=== PATIENT | female | born 1980 | race African-American/Black ===

== ENCOUNTER 2018-12-31 20:57 | Emergency (ER) | payer OTHER, SELFPAY | END 2018-12-31 21:14 | disposition home or self-care (01) | LOC: MADERS 20:57 | DX: R21 Rash and other nonspecific skin eruption (principal); F17.210 Nicotine dependence, cigarettes, uncomplicated | CPT/HCPCS: 99282 ==

== ENCOUNTER 2019-02-22 19:23 | Emergency (ER) | payer OTHER ==
--- NOTE | 2019-02-22 20:29 | RAD ---
EXAM: XR Clavicle Rt 2 V STANDARD PROVIDED CLINICAL HISTORY: Pain FINDINGS: There is no evidence for fracture or other acute osseous abnormality. Alignment appears anatomic. Rebeka nt spaces appear preserved. IMPRESSION: No evidence for an acute osseous abnormality. If there is persistent clinical concern, conservative m anagement and follow-up imaging advised.
[2019-02-22] MEDS ORDERED: Acetaminophen 500 MG TAB ONE (20:34)
[2019-02-22] MEDS ORDERED: Ibuprofen 800 MG TAB ONE (20:34)
== END 2019-02-22 20:50 | disposition home or self-care (01) ==
LOC: MADERS 19:23
DX: S60.222A Contusion of left hand, initial encounter (principal); M25.511 Pain in right shoulder; F17.210 Nicotine dependence, cigarettes, uncomplicated; V89.2XXA Person injured in unspecified motor-vehicle accident, traffic, initial encounter

== ENCOUNTER 2019-04-15 18:04 | Emergency (ER) | payer OTHER ==
[2019-04-15] MEDS ORDERED: Benzonatate 100 MG CAP ONE (18:31)
[2019-04-15] MEDS ORDERED: Dexamethasone 4 MG TAB ONE (18:31)
[2019-04-15] MEDS ORDERED: Lisinopril 10 MG TAB ONE (18:31)
[2019-04-15] MEDS ORDERED: Phenergan/Codeine 10-6.25mg/5ml UDCUP ONE (18:31)
== END 2019-04-15 18:30 | disposition home or self-care (01) ==
LOC: MADERS 18:04
DX: J20.8 Acute bronchitis due to other specified organisms (principal)
CPT/HCPCS: 99283; J8540

== ENCOUNTER 2021-05-26 11:15 | Emergency (ER) | payer OTHER | END 2021-05-26 11:45 | disposition home or self-care (01) | LOC: MADERS 11:15 | DX: S00.93XA Contusion of unspecified part of head, initial encounter (principal); V43.52XA Car driver injured in collision with other type car in traffic accident, initial encounter; Y92.411 Interstate highway as the place of occurrence of the external cause | CPT/HCPCS: 99283 ==

== ENCOUNTER 2022-08-04 21:38 | Emergency (ER) | payer OTHER ==
[2022-08-04 22:39] LABS: Amphetamine Not Detected (NotDetected); Barbiturates Screen Not Detected (NotDetected); Benzodiazepine Screen Not Detected (NotDetected); Cocaine Metabolite Screen Not Detected (NotDetected); Methadone Not Detected (NotDetected); Methamphetamine Not Detected (NotDetected); Opiate Screen Not Detected (NotDetected); Oxycodone Screen Not Detected (NotDetected); Phencyclidine (PCP) Not Detected (NotDetected); THC/Cannabinoid Screen Detected (NotDetected); Tricyclic Screen Not Detected (NotDetected)
== END 2022-08-04 23:06 | disposition home or self-care (01) ==
LOC: MADERS 21:38
DX: F12.10 Cannabis abuse, uncomplicated (principal); I45.89 Other specified conduction disorders
CPT/HCPCS: 36416; 70450; 80306; 93005

== ENCOUNTER 2023-03-08 12:28 | Emergency (ER) | payer OTHER, SELFPAY ==
[2023-03-08] MEDS ORDERED: Ibuprofen 800 MG TAB ONE (12:47)
== END 2023-03-08 13:26 | disposition home or self-care (01) ==
LOC: MADERS 12:28
DX: J10.1 Influenza due to other identified influenza virus with other respiratory manifestations (principal)
CPT/HCPCS: 87804; 99283